=== PATIENT | male | born 1970 | race Caucasian/White ===

== ENCOUNTER 2018-09-29 18:06 | Emergency (ER) | payer SELFPAY ==
[~2018-09-29] VITALS: Ht 175.3 cm; Wt 86.4 kg
[~2018-09-29 18:06] MED LIST: BENTYL 10MG10 MG/CAP PO; BENTYL 20MG TAB20 MG PO; CEPHALEXIN500 M1 PO; CLONAZEPAM PO; DILAUDID 2MG TAB2 MG PO; IMITREX50 MG PO; KLONOPIN 0.5MG0.5 MG PO; LIORESAL 1010 MG/TAB PO; LORTAB 5/500 501 TAB; MOTRIN 800800 MG/TAB PO; NEURONTIN800 MG/TAB PO; NORCO 325 MG-7.1 TAB PO; OXYCONTIN20 MG PO; PERCOCET 5/321 UDTAB PO; PERCOCET 650 MG1 TAB PO; PHENERGAN 25 TA25 MG PO; PROZAC 20MG20 MG PO; REGLAN 10M10 MG/2 ML; REGLAN 10MG10 MG/TAB PO; ULTRAM 50MG TAB50 MG PO; VIVLODEX10 MG PO; ZOFRAN8 MG PO
[2018-09-29 18:08] VITALS: TEMP 97.9
[2018-09-29 18:34] LABS: BASO # 0.1 (0.0-0.2); BASO % 0.5 % (0.0-2.0); EOS # 0.1 (0.0-0.7); EOS % 0.8 % (0-4.0); GRAN # 6.1 (1.4-6.5); GRAN % 54.8 % (42.2-75.2); HEMATOCRIT 47.7 % (42.0-52.0); HEMOGLOBIN 16.3 g/dl (13.5-18.0); LYMPH % 36.5 % (20.0-51.0); MEAN CELL VOLUME 89 fl (80.0-100.0); MEAN CORPUSCULAR HEMOGLOBIN 30 pg (27.0-31.0); MEAN CORPUSCULAR HGB CONC 34 g/dl (33.0-37.0); MEAN PLATELET VOLUME 9.4 fl (7.4-10.4); MONO # 0.7 (0.1-0.6); MONO % 6.1 % (1.7-9.3); PLATELET COUNT 232 K/mm3 (130-400); RED BLOOD COUNT 5.36 M/mm3 (4.20-5.60); REDCELL DISTRIBUTION WIDTH-CV 12.4 % (11.5-14.5)
[2018-09-29 18:46] LABS: BILIRUBIN,TOTAL 0.5 mg/dL (0.0-1.0); C-REACTIVE PROTEIN 0.6 mg/dL (0.0-0.9); CALCIUM 9.4 mg/dL (8.4-10.2); CREATININE, serum 0.86 mg/dL (0.66-1.25); POTASSIUM 4.1 mmol/L (3.4-5.0); TOTAL PROTEIN 7.1 gm/dL (6.4-8.2)
[2018-09-29 21:22] VITALS: BP 126/95; PULSE 82
== END 2018-09-29 21:24 | disposition home or self-care (01) ==
LOC: COL.ER 18:06
PROVIDERS: Nurse Practitioner
DX: K59.00 Constipation, unspecified (principal); G43.909 Migraine, unspecified, not intractable, without status migrainosus; M54.9 Dorsalgia, unspecified; G89.29 Other chronic pain; F17.210 Nicotine dependence, cigarettes, uncomplicated; Z79.891 Long term (current) use of opiate analgesic; Z90.49 Acquired absence of other specified parts of digestive tract
CPT/HCPCS: J1170; J2405; J7030

== ENCOUNTER 2018-12-10 11:28 | Emergency (ER) | payer SELFPAY ==
[~2018-12-10] VITALS: Ht 177.8 cm; Wt 88.6 kg
[2018-12-10 11:38] VITALS: BP 165/91; PULSE 81; TEMP 97.4
== END 2018-12-10 13:27 | disposition left against medical advice (07) ==
LOC: COL.ER 11:28
DX: M54.5 Low back pain (principal)

== ENCOUNTER 2019-09-16 20:11 | Emergency (ER) | payer BC ==
[~2019-09-16] VITALS: Ht 177.8 cm; Wt 96.4 kg
[2019-09-16 20:12] VITALS: TEMP 97.1
[2019-09-16 20:46] LABS: BASO # 0.1 (0.0-0.2); BASO % 0.5 % (0.0-2.0); EOS # 0.1 (0.0-0.7); EOS % 0.6 % (0-4.0); GRAN # 10.6 (1.4-6.5); HEMATOCRIT 47.3 % (42.0-52.0); HEMOGLOBIN 15.8 g/dl (13.5-18.0); LYMPH # 2.6 (1.2-3.4); LYMPH % 17.6 % (20.0-51.0); MEAN CELL VOLUME 88 fl (80.0-100.0); MEAN CORPUSCULAR HEMOGLOBIN 30 pg (27.0-31.0); MEAN CORPUSCULAR HGB CONC 33 g/dl (33.0-37.0); MONO # 1.1 (0.1-0.6); MONO % 7.4 % (1.7-9.3); PLATELET COUNT 253 K/mm3 (130-400); RED BLOOD COUNT 5.35 M/mm3 (4.20-5.60); REDCELL DISTRIBUTION WIDTH-CV 12.4 % (11.5-14.5)
[2019-09-16] MEDS ORDERED: DESYREL 50MG50 MG PO (20:48)
[2019-09-16] MEDS ORDERED: OXYCONTIN 10MG10 MG PO (20:48)
[2019-09-16 20:57] LABS: ALBUMIN 4.4 gm/dL (3.5-5.0); BILIRUBIN,TOTAL 0.4 mg/dL (0.0-1.0); CALCIUM 9.4 mg/dL (8.4-10.2); CREATININE, serum 0.74 (0.66-1.25); POTASSIUM 3.9 mmol/L (3.4-5.0); TOTAL PROTEIN 7.8 gm/dL (6.4-8.2)
[2019-09-16 22:54] VITALS: PULSE 117
[2019-09-16 23:55] VITALS: BP 139/96
== END 2019-09-16 23:55 | disposition short-term general hospital (02) ==
LOC: COL.ER 20:11
PROVIDERS: Family Medicine
DX: M48.062 Spinal stenosis, lumbar region with neurogenic claudication (principal); D72.829 Elevated white blood cell count, unspecified; M54.17 Radiculopathy, lumbosacral region; F17.210 Nicotine dependence, cigarettes, uncomplicated; Z98.890 Other specified postprocedural states
CPT/HCPCS: J1170; J1200; J1630; J1885; J3370; J7040

== ENCOUNTER 2024-03-20 16:33 | Emergency (ER) | payer SELFPAY ==
[~2024-03-20] VITALS: Ht 167.6 cm; Wt 77.3 kg
[~2024-03-20 16:33] MED LIST changes: +BACTROBAN 22GM22 GM; +DESYREL 50MG50 MG PO; +OXYCONTIN 10MG10 MG PO
[2024-03-20 16:39] VITALS: TEMP 98.3
[2024-03-20 17:00] LABS: BASO # 0.1 K/mm3 (0.0-0.2); BASO % 0.4 % (0.0-2.0); EOS % 0.2 % (0.0-4.0); GRAN # 10.1 K/mm3 (1.4-6.5); GRAN % 83.9 % (42.2-75.2); HEMATOCRIT 51.9 % (42.0-52.0); HEMOGLOBIN 17.4 g/dl (13.5-18.0); LYMPH # 1.1 K/mm3 (1.2-3.4); LYMPH % 9.4 % (20.0-51.0); MEAN CELL VOLUME 85 fl (80.0-100.0); MEAN CORPUSCULAR HEMOGLOBIN 28 pg (27-31); MEAN CORPUSCULAR HGB CONC 34 g/dl (33.0-37.0); MEAN PLATELET VOLUME 9.3 fl (7.4-10.4); MONO # 0.6 K/mm3 (0.1-0.6); MONO % 5.4 % (1.7-9.3); PLATELET COUNT 237 K/mm3 (130-400); RED BLOOD COUNT 6.14 M/mm3 (4.20-5.60)
[2024-03-20] MEDS ORDERED: NS 1,000 ML IV ONE (17:00)
[2024-03-20 17:08] LABS: PROTHROMBIN TIME 11.1 SECONDS (9.7-12.8)
[2024-03-20 17:17] LABS: ALANINE AMINOTRANSFERASE 22 U/L (0-55); ALBUMIN 3.4 g/dL (3.5-5.0); ALCOHOL(ethanol),MEDICAL < 10 mg/dL (0-10); ALKALINE PHOSPHATASE 101 U/L (40-150); ANION GAP 13 mmol/L (7-16); AST,SGOT 19 U/L (5-34); BILIRUBIN,TOTAL 0.6 mg/dL (0.2-1.2); BLOOD UREA NITROGEN 10 mg/dL (8-26); CALCIUM 9.1 mg/dL (8.4-10.2); CHLORIDE 102 mEq/L (98-107); CREATINE KINASE 410 U/L (30-200); CREATININE, serum 0.87 mg/dL (0.72-1.25); GLUCOSE 380 mg/dL (70-99); SODIUM 134 mEq/L (136-145)
[2024-03-20 17:29] LABS: TROPONIN-I < 0.010 ng/mL (0.00-0.033)
[2024-03-20 17:29] LABS: COLLECTION METHOD CLEAN CATCH
[2024-03-20 17:39] LABS: URINE APPEARANCE CLEAR (CLEAR/HAZY); URINE BLOOD 1+ (NEGATIVE); URINE COLOR YELLOW (YELLOW); URINE GLUCOSE 3+ (NEGATIVE); URINE KETONE 2+ (NEGATIVE); URINE NITRATE NEGATIVE (NEGATIVE); URINE PROTEIN(semi-quant) NEGATIVE (NEGATIVE); URINE UROBILINOGEN 0.2 E.U/dL (0.2-1.0)
[2024-03-20 17:59] LABS: TRICYCLIC ANTIDEPRESS URINE NEGATIVE (NEGATIVE)
[2024-03-20 18:30] VITALS: BP 164/100; PULSE 82
[2024-03-20] MEDS ORDERED: NS 1,000 ML IV SCH (18:30)
== END 2024-03-20 18:55 | disposition short-term general hospital (02) ==
LOC: COL.ER 16:33
PROVIDERS: Emergency Medicine
DX: I63.89 Other cerebral infarction (principal)
CPT/HCPCS: A4314; J7030